=== PATIENT | male | born 1970 | race Caucasian/White ===

== ENCOUNTER 2017-02-09 10:03 | Emergency (ER) | payer OTHER ==
[~2017-02-09] VITALS: Ht 172.7 cm; Wt 92.4 kg
[2017-02-09 10:48] LABS: HEMATOCRIT 45.8 % (38.0-50.0); MCHC 35.6 G/DL (30.0-36.0); MCV 87.2 FL (86-99); MEAN PLAT.VOLUME 9.2 uM^3 (9.0-12.4); PLATELET COUNT 234 K/uL (156-360); RBC DIS.WIDTH-CV 12.1 % (11.8-14.6); RBC DIS.WIDTH-SD 38.5 % (39-53); RED BLOOD COUNT 5.25 M/uL (4.00-5.50)
[2017-02-09 10:57] LABS: CHLORIDE 106 mEq/L (99-109)
[2017-02-09 10:58] LABS: POTASSIUM 4.9 mEq/L (3.7-5.4); SODIUM 140 mEq/L (136-147)
[2017-02-09 10:59] LABS: GLUCOSE 108 mg/dL (70-99)
[2017-02-09 11:01] LABS: ANION GAP 9 MEQ/L (2-14)
[2017-02-09 11:03] LABS: GFR ESTIMATE (CALCULATED) > 59 mL/min/
[2017-02-09 11:04] LABS: UREA NITROGEN (BUN) 9 mg/dL (9-23)
[2017-02-09 11:08] LABS: TROP-I INTERPRETATION NEGATIVE; TROPONIN-I < 0.01 ng/mL (0.0-0.30)
[2017-02-09 14:02] LABS: TROP-I INTERPRETATION NEGATIVE; TROPONIN-I < 0.01 ng/mL (0.0-0.30)
[2017-02-09] MEDS ORDERED: OMEPRAZOLE40 M1 PO (14:22)
[2017-02-09 14:45] VITALS: BP 125/77
== END 2017-02-09 14:47 | disposition home or self-care (01) ==
LOC: EME 10:03
PROVIDERS: Physician Assistant
DX: R07.9 Chest pain, unspecified (principal)
CPT/HCPCS: 71020; 80048; 84484; 85027; 85379; 93005; 99281; 99284